=== PATIENT | female | born 1975 | race Caucasian/White ===

== ENCOUNTER 2024-12-21 13:00 | Day surgery (SDC) | payer OTHER, SELFPAY ==
[2024-12-21] VITALS (8 sets, daily range): BP systolic 89–109; BP diastolic 60–77; PULSE 80–92; RESP 16–20; TEMP 36.2–36.8; O2SAT 98–100; BMI 36.8
--- NOTE | ~2024-12-21 | XR_ITS ---
XR stent kub - surgery Ordering provider: Norbert Cruz MD History: . LT CYSTO SPECIAL . Comparison: None. FINDINGS/impression: Fluoroscopy time is 12.1 seconds. Cumulative dose is 5.17mGy. Left retrograde pyelography. Reviewed, dictated and finalized at location A.
--- NOTE | 2024-12-21 08:31 | PC.NURSE ---
Report to the Outpatient Waiting Room, entrance under the green pavilion located off [facility], at time _115pm_ on date _[id number]_. Planned Procedure Time: _315pm_.? Time changes happen often and if your time is changed the preop area will call you the afternoon before. - You and your visitor will be asked to self-screen and do not enter if you have any COVID symptoms. Please call surgeon if you need to reschedule. - A mask is optional within the hospital at this time. Patients may have clear liquids (water, carbonated beverages, clear teas, apple juice) until 3 hours prior to surgery with a maximum of 20 ounces. - No food from midnight until time of surgery and no smoking, or chewing tobacco (or any form of nicotine). No chewing gum, candy or mints. Take only the following medications with a SIP of water on the morning of surgery: __Bupropion, Venlafaxine and if needed Hydrocodone and or Alprazolam DO NOT STOP ANY OF YOUR OTHER PRESCRIPTION MEDICATIONS PRIOR TO SURGERY EXCEPT THE FOLLOWING Hold all vitamins and supplements for 3 days per anesthesiologist. Medications to discontinue per physician Date to take last dose Please no make-up, nail welsh, hairspray, perfume, deodorant, or body powder the day of surgery.? No jewelry (including any body piercings) or valuables the day of surgery, leave them at home.? Please take a shower or bath the night before, or the morning of, surgery with an antibacterial soap.? Wear comfortable, loose fitting clothing.? - Jewelry must be removed prior to entering the operating room.? Rings and piercings that are not removed may be cut off. - The hospital will not accept responsibility for valuables.? - Please leave all valuables, including medications, at home the day of surgery. If you are going home after surgery, a licensed commercial trailer truck driver must drive you home.? - NO public transportation without another adult if you receive anesthesia. - We recommend that an adult stay with you for 24 hours following discharge. - We also recommend that you do not drive, make important decision, drink alcoholic beverages, or take any drugs that were not prescribed by your health care provider for at least 24 hours after your discharge time. Follow any additional instructions given to you from your surgeon. Telephone instructions given to ___Kasey__and asked if any additional questions and then verbalized understanding. Patient advised to call surgeon office or pre surgery nurse liaison [phone] if any additional questions.
--- NOTE | 2024-12-21 09:22 | ECG_ITS ---
Test Date: 2024-12-21 13:25:36 Measurements Intervals [place] Rate: 86 P: 11 MA: 150 QRS: 7 QRSD: 94 T: 22 QT: 399 QTc: 477 Interpretive Statements SINUS RHYTHM No previous ECG available for comparison Electronically Signed On 12-21-2024 16:52:17 CDT by Annie Toscano
--- OUTSIDE RECORDS SUMMARY | 2024-12-21 13:04 | XMS_ITS | Encounter Summary ---
Author Organization [facility] Address [facility] [place] [address] Care Team Providers Care Certified Medication Technician Name Role Phone Francisco Marrero DO Primary Care Provider [phone] Encounter Details Date Type Department Care Team (Late st Contact Info) Description 08/06/2022 Alloptic Message Enc [facility] Health Information Services [address] [place] [id number] [facility] Provider NAME CHANGE Social History Tobacco Use Types Packs/Day Years Used Date Smoking Tobacco: Never Smokeless Tobacco: Never Alcohol Use Standard Drinks/Week Comments Not Currently 0 (1 standard drink = 0.6 oz pur e alcohol) Less than 2 drinks per month AUDIT-C Answer Date Recorded Frequency of Alcohol Consumption Never 11/18/2018 Average Number of Drinks Not on file 019 Frequency of Binge Drinking Not on file 10/21 PHQ-2 Answer Date Recorded PHQ-2 Score - If the patient scores above 3, please move on to questions 3-9 0 05/22/2020 Comments No Sex and Gender Information Value Date Recorded Sex Assigned at Not on file Legal Sex Female 6:18 PM CDT Gender Identity Female 07/08/2022 9:27 AM 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 No / Unsure 08/05/2022 8:33 AM PLASTIC FRAME INSERTER documented as of this encounter Plan of Treatment Upcoming Encounters Date Type Department Care Team (Late st Contact Info) Description 09/26/2025 8:30 AM CDT Appointment [facility] [address] [place] [address] Francisco Marrero DO [address] [place], [place] [address] documented as of this encounter Visit Diagnoses Not on filedocumented in this encounter Additional Health Concerns Assessment Noted Time PHQ-9 Depression Total Score: 3 04/14/20 19 10:06 AM CDT documented as of this encounter Care Teams Certified Medication Technician Relationship Specialty Start Date End Date Francisco Marrero DO [address] [place], [place] [id number] PCP - General FAMILY PRACTICE 06/11/21 documented as of this encounter
--- OUTSIDE RECORDS SUMMARY | 2024-12-21 13:04 | XMS_ITS | Encounter Summary ---
Author Organization [facility] Address [facility] [place] [address] Care Team Providers Care Photovoltaic Installer Name Role Phone Francisco Marrero DO Primary Care Provider [phone] Encounter Details Date Type Department Care Team (Late st Contact Info) Description 12/20/2024 Results Follow-Up [facility] Emergency Room [address] [place] [address] Judith Washburn MD [address] [place] [address] URINE BACTERIA CULTURE Social History Tobacco Use Types Packs/Day Years [...] on file 10/21 PHQ-2 Answer Date Recorded Patient Health Questionnaire-2 Score 0 03/15/2024 Comments No Sex and Gender Information Value Date Recorded Sex Assigned at Not on file Legal Sex Female 6:18 PM CDT Gender Identity Female 07/08/2022 9:27 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 Sexual Orientation Straight 07/08/2022 9: 27 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 documented as of this encounter Plan of Treatment Upcoming Encounters Date Type Department Care Team (Late st Contact Info) Description 09/26/2025 8:30 AM CDT Appointment [facility] [address] [place] [address] Francisco Marrero DO [address] [place] [address] documented as of this encounter Visit Diagnoses Not on filedocumented in this encounter Additional Health Concerns Assessment Noted Time PHQ-9 Depression Total Score: 3 04/14/20 19 10:06 AM CDT documented as of this encounter Care Teams Photovoltaic Installer Relationship Specialty Start Date End Date Francisco Marrero DO [address] [place], [place] [id number] PCP - General FAMILY PRACTICE 06/11/21 documented as of this encounter
--- OUTSIDE RECORDS SUMMARY | 2024-12-21 13:04 | XMS_ITS | Encounter Summary ---
Author Organization [facility] Address [facility] [place] [address] Care Team Providers Care Delivery And Mail Sorter Name Role Phone Maria Esther Motley NP Primary Care Provider [phone] Francisco Marrero DO Primary Care Provider [phone] Reason for Referral * Imaging (Routine) - Closed Specialty Diagnoses / Procedures Referred By Contac t Referred To Contact RADIOLOGY Diagnoses Genetic carrier Procedures MRI BREAST MARY WWO CON Zoila Morales MD [address] [place] [address] [place] [address] Phone: tel: fax: Referral ID Status Reason Start Date Expiration Date Visits Re quested Visits Authorized [id number] Closed 06/24/2021 08/08/2021 1 1 Encounter Details Date Type Department Care Team (Late st Contact Info) Description 04/14/2021 Community Orders [facility] EPICCARE [facility] Zoila Aragon MD [address] [place] [address] [place] [address] Social History Tobacco Use Types Packs/Day Years [...] CDT Gender Identity Female 07/08/2022 9:27 AM 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 FINANCE SPECIALIST Sexual Orientation Straight 07/08/2022 9: 27 AM STUDENT FINANCE SPECIALIST documented as of this encounter Plan of Treatment Upcoming Encounters Date Type Department Care Team (Late st Contact Info) Description 09/26/2025 8:30 AM CDT Appointment [facility] [address] [place] [address] Francisco Marrero DO [address] [place] [address] documented as of this encounter Results * MRI BREAST MARY WWO CON [place] (06/30/2021 1:17 PM STUDENT FINANCE SPECIALIST) Anatomical Region Laterality Modality Breast Bilateral Magnetic Resonan ce 07/02/2021 2:33 PM STUDENT FINANCE SPECIALIST Impressions 07/02/2021 2:42 PM STUDENT FINANCE SPECIALIST IMPRESSION: 1. Negative study. No breast MRI evidence of invasive malignancy within either breast. Recommendation: 1: Screening mammogram bilateral in 12 months. 2. Repeat breast MRI in 18 months. Return for Routine Follow-Up: Yes Assessment: BI-RADS 2 Ordered By: ZOILA ARAGON Interpreted By: Jerod Resendez MD, 07/02/2021 2:33 PM Narrative 07/02/2021 2:42 PM STUDENT FINANCE SPECIALIST Examination: MRI breast bilateral with and without contrast Exam Date: 06/30/2021 12:22 PM Clinical history: Personal high risk of breast cancer, heterogeneous dense glandular tissue on mammography, supplemental screening. Comparison: Mammograms 12/07/2018, 11/17/2017, 10/05/2016 and 04/01/2016. Breast MRI for 08/10/2014 MRI technique: Axial T1 and T2-weighted images were obtained along with sagittal fat-suppressed T2-weighted images. Axial fat-suppressed 3-D T1 gradient echo images were then obtained. Following intravenous injection of 0.1 mmol/kilogram gadolinium contrast, the axial T1 gradient-echo fat-suppressed sequence was repeated 5 times using rapid dynamic technique. Further delayed axial T1 sequence was also obtained. The precontrast axial T1 sequence was then electronically subtracted from the post contrast axial T1 sequences in order to improve background suppression. The study was interpreted with the assistance of a computer aided detection system. Findings: The images demonstrate heterogeneous dense glandular tissue throughout both breasts. No significant cysts are seen in either breast. No significant abnormal enlarged axillary lymph nodes are noted. In the right breast 9:00 position there is an oval enhancing mass which measures up to 14 mm in maximum diameter. This has smooth lobulated margins, high T2 signal intensity and benign enhancement curve. This is unchanged in comparison to previous mammograms and previous breast MRI consistent with benign etiology. At 10:00 posterior right breast there is an additional oval enhancing mass which measures up to 9 mm in maximum diameter also demonstrate a smooth margins, high T2 signal intensity and no interval change from previous mammograms and breast MRI consistent with benign etiology. There is no malignant appearing enhancement identified within either breast. Result [facility] Zoila Aragon MD MRI Final Result documented in this encounter Visit Diagnoses Diagnosis Genetic carrier- Primary Other genetic carrier status Genetic carrier Other genetic carrier status documented in this encounter Additional Health Concerns Assessment Noted Time PHQ-9 Depression Total Score: 3 04/14/20 19 10:06 AM CDT documented as of this encounter Care Teams Delivery And Mail Sorter Relationship Specialty Start Date End Date Maria Esther Motley NP [address] [place] [address] PCP - General Nurse Practitioner Family 04/12/19 Francisco Marrero DO [address] [place] [id number] PCP - General FAMILY PRACTICE 06/11/21 documented as of this encounter
--- OUTSIDE RECORDS SUMMARY | 2024-12-21 13:04 | XMS_ITS | Encounter Summary ---
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 Wish to be (Past 1 Month) No 12/19/2024 10:29 AM SHAKILAT Yomaira Vargas RN Active 2. Non-Specific Active Suicidal Thoughts (Past 1 Month) No 12/19/2024 10:29 AM CDT Yomaira Vargas RN Active 6. Suicidal Behavior (Lifetime) No 12/19/2024 10:29 AM CDT Yomaira Vargas RN Active documented as of this encounter Plan of Treatment Upcoming Encounters Date Type Department Care Team (Late st Contact Info) Description 09/26/2025 8:30 AM CDT Appointment [facility] [address] [place] [address] Francisco Marrero DO [address] [place] [address] documented as of this encounter Results * VITAMIN D, 25 OH (12/18/2024 1:05 PM CDT) VITAMIN D 25 HYDROXY S/P/B 45 30 - 100 NG/ML 12/18/2024 2:26 PM CDT [facility] Comment: INTERPRETATION DEFICIENT <20 INSUFFICIENT 20-29 SUFFICIENT 30-100 12/18/2024 1:05 PM CDT us Brenda [facility] Final Resul t [facility] [address] [place] [address], [place] [phone] * (ABNORMAL) IRON SAT PANEL (IRON,IBC,%SAT) (12/18/2024 1:05 PM CDT) IRON 52 50 - 170 MCG/DL 12/19/2024 12:15 PM CDT [facility] IRON BINDING CAPACITY 358 250 - 450 MCG/DL 12/19/2024 12:15 PM CDT [facility] IRON SATURATION 15(L) 20 - 55 % 12:15 PM CDT [facility] 12/18/2024 1:05 PM CDT Brenda Haq APNP LABORATORY Final Resul t [facility] [address] [place] [address], [place] [phone] * THYROID STIM HORMONE TSH (12/18/2024 1:05 PM CDT) TSH 1.179 0.358 - 3.74 uIU/ML 12/18/2024 2:06 PM CDT [facility] Comment: HIGH DOSES OF BIOTIN MAY INTERFERE WITH THIS TEST RESULT. CORRELATION TO CLINICAL HISTORY AND PRESENTATION RECOMMENDED. 12/18/2024 1:05 PM CDT Brenda L Eun APNP LABORATORY Final Resul t [facility] [address] [place] [address], [place] [phone] * (ABNORMAL) COMPREHENSIVE METABOLIC PANEL (12/18/2024 1:05 PM CDT) GLUCOSE 113(H) 70 - 99 MG/DL 12/18/2024 2:06 PM CDT [facility] BUN 22(H) 7 - 18 MG/DL 12/18/2024 2:06 PM CDT [facility] CREATININE S/P/B 1.00 0.55 - 1.02 MG/DL 12/18/2024 2:06 PM T [facility] SODIUM S/P/B 141 136 - 145 MMOL/L 12/18/2024 2:06 PM T [facility] POTASSIUM S/P/B 3.5 3.5 - 5.1 MMOL/L 12/18/2024 2:06 PM T [facility] CHLORIDE S/P/B 103 100 - 108 MMOL/L 12/18/2024 2:06 PM T [facility] CO2 27.0 21 - 32 MMOL/L 12/18/2024 2:06 PM [facility] CALCIUM S/P/B 9.0 8.5 - 10.1 MG/DL 12/18/2024 2:06 PM T [facility] BILIRUBIN TOTAL S/P/B 0.4 0.2 - 1.2 MG/DL 12/18/2024 2:06 PM T [facility] Comment: THIS ASSAY IS NOT RECOMMENDED FOR PATIENTS UNDERGOING TREATMENT WITH ELTROMBOPAG DUE TO THE POTENTIAL FOR FALSELY ELEVATED RESULTS. TOTAL PROTEIN S/P/B 7.3 6.4 - 8.2 G/DL 12/18/2024 2:06 PM [facility] ALBUMIN S/P/B 3.4 3.4 - 5.0 G/DL 12/18/2024 2:06 PM [facility] AST 16 15 - 37 U/L 12/18/2024 2:06 PM T [facility] ALT 31 14 - 55 U/L 12/18/2024 2:06 PM [facility] ALKALINE PHOSPHATASE S/P/B 129 50 - 136 U/L 12/18/2024 2:06 PM T [facility] ANION GAP 11.0 5 - 15 MMOL/L 12/18/2024 2:06 PM CDT [facility] BUN CREATININE RATIO 22.0 6 - 26 12/18/2024 2:06 PM CDT [facility] A/G RATIO 0.9(L) 1.0 - 2.0 RATIO 12/18/2024 2:06 PM CDT [facility] GFR ESTIMATE 68(L) >90 ML/MIN/1.7 3 M2 12/18/2024 2:06 PM CDT [facility] Comment: NOTE: eGFR is not calculated for patients <18 years of age. This is an estimated GFR calculation using the new CKD EPI creatinine equation without race and so does not require a correction factor for race. This estimated GFR should not be used for calculating drug doses. 12/18/2024 1:05 PM CDT us Brenda COTTERNP LABORATORY Final Resul t [facility] [address] [place] [address], [place] [phone] * CBC W/DIFF AUTOMATED (12/18/2024 1:05 PM CDT) WBC 6.60 4.50 - 11.00 x10'3/uL 12/18/2024 1:26 PM CDT [facility] RBC 4.71 4.20 - 5.40 x10'6/uL 12/18/2024 1:26 PM CDT [facility] HGB 13.3 12.0 - 16.0 G/DL 12/18/2024 1:26 PM CDT [facility] HCT 40.8 38.0 - 48.0 % 12/18/2024 1:26 PM CDT [facility] MCV 86.6 81.0 - 99.0 FL 12/18/2024 1:26 PM CDT [facility] MCH 28.2 27.0 - 31.0 PG 12/18/2024 1:26 PM CDT [facility] MCHC 32.6 32.0 - 36.0 G/DL 12/18/2024 1:26 PM CDT [facility] RDW 13.2 11.5 - 14.5 % 12/18/2024 1:26 PM CDT [facility] PLT 348 130 - 400 x10'3/uL 12/18/2024 1:26 PM CDT [facility] MPV 10.3 9.3 - 12.2 FL 12/18/2024 1:26 PM CDT [facility] CBC COMMENT AUTOMATED RBC MORPHOLOGY AND PLATELET EVALUATION NORMAL 12/18/2024 1:26 PM CDT [facility] NEUTROPHILS % 58.4 % 12/18/2024 1:26 PM CDT [facility] LYMPHOCYTES % 32.3 % 12/18/2024 1:26 PM CDT [facility] MONOCYTES % 5.8 % 12/18/2024 1:26 PM CDT [facility] EOSINOPHILS 2.6 % 12/18/2024 1:26 PM CDT [facility] BASOPHILS 0.6 % 12/18/2024 1:26 PM CDT [facility] IMMATURE GRANS % 0.3 % 12/19/19 1:26 PM CDT [facility] NRBC % 0.0 % 12/18/2024 1:26 PM CDT [facility] ABS. NEUTROPHILS TOTAL 3.86 1.80 - 7.70 x10'3/uL 12/18/2024 1:26 PM CDT [facility] ABS. LYMPHOCYTES 2.13 1.00 - 4.80 x10'3/uL 12/18/2024 1:26 PM CDT [facility] ABS. MONOCYTES 0.38 0.24 - 0.86 x10'3/uL 12/18/2024 1:26 PM CDT [facility] ABS. EOSINOPHILS 0.17 0.04 - 0.36 x10'3/uL 12/18/2024 1:26 PM CDT [facility] ABS. BASOPHILS 0.04 0.01 - 0.08 x10'3/uL 12/18/2024 1:26 PM CDT [facility] ABS. IMMATURE GRANULOCYTES 0.02 0.00 - 0.49 x10'3/uL 12/18/2024 1:26 PM CDT [facility] ABS. NUCLEATED RBC'S 0.00 0.00 - 0.01 x10'3/uL 12/18/2024 1:26 PM CDT [facility] 12/18/2024 1:05 PM CDT us Brenda [facility] Final Resul t [facility] [address] [place] [id number], documented in this encounter Visit Diagnoses Diagnosis Essential (primary) hypertension- Primary Unspecified essential hypertension Major depressive disorder, single episode, unspecified Vitamin D deficiency Unspecified vitamin D deficiency Anemia Anemia, unspecified documented in this encounter Additional Health Concerns Assessment Noted Time PHQ-9 Depression Total Score: 3 04/14/20 19 10:06 AM CDT documented as of this encounter Care Teams Director Of Math Relationship Specialty Start Date End Date Francisco Marrero DO [address] [place] [id number] PCP - General FAMILY PRACTICE 06/11/21 documented as of this encounter
--- OUTSIDE RECORDS SUMMARY | 2024-12-21 13:04 | XMS_ITS | Clinical Summary ---
Author Organization [facility] Address [facility] [place] [address] Care Team Providers Care Director Internal Communications Name Role Phone Kayla Eugene DO Primary Care Provider [phone] Allergies Active Allergy Reactions Criticality Noted Date Comments Chapstick Swelling 01/19/2013 Cyanoacrylate Hives 04/14/2021 Tamsulosin Shortness of Breath,Tachycardia High 06/2024 Latex Hives 12/26/2019 Penicillins Hives 11/18/2018 Tape Rash Medium 07/16/2020 Medications fluticasone propionate 50 MCG/ACT nasal spray 1 spray by Nasal route daily. Active ondansetron 4 MG disintegrating tablet Take 1 tablet (4 mg total) by mouth every 8 (eight) hours as needed. 0 Active cetirizine 10 MG tablet Take 1 tablet (10 mg total) by mouth daily. Active ALPRAZolam 0.5 MG tabletIndications:A nxiety Take 1 tablet (0.5 mg total) by mouth 2 (two) times daily as needed for Sleep or Anxiety. 60 tablet 2 1 Active buPROPion XL (WELLBUTRIN XL) 300 MG 24 hr tablet Take 1 tablet (300 mg total) by mouth daily. Active venlafaxine XR (EFFEXOR-XR) 75 MG 24 hr capsule Take 1 capsule (75 mg total) by mouth daily. 4 Active lisinopril (PRINIVIL) 5 MG tablet Take 1 tablet (5 mg total) by mouth daily. Active hydroCHLOROthiazide (HYDRODIURIL) 25 MG tablet Take 1 tablet (25 mg total) by mouth daily. Active SEMAGLUTIDE-WEIGHT MANAGEMENT SC Inject 0.4 mg into the skin once a week. Active ketorolac (TORADOL) 10 MG tablet Take 1 tablet (10 mg total) by mouth 4 (four) times daily as needed for Pain. Do NOT take aspirin, ibuprofen, naproxen or other nsaids while taking this medication. 20 tablet 5 12/25/19 25 Active ondansetron (ZOFRAN-ODT) 4 MG disintegrating tablet Take 1 tablet (4 mg total) by mouth every 8 (eight) hours as needed. 10 tablet 5 Active HYDROcodone-acetami nophen (NORCO) 5-325 MG tabletIndications:A cute Pain < 3 Day Supply Take 1 tablet by mouth every 6 (six) hours as needed. Indications: Acute Pain < 3 Day Supply 10 tablet 5 Active Active Problems Problem Noted Date Diagnosed Date High blood pressure 10/21/2020 Anxiety 03/28/2016 Encounters Date Type Department Care Team Description 12/20/2024 Results Follow-Up [facility] [address] [place] [id number] Judith Curiel MD URINE BACTERIA CULTURE 12/19/2024 10:24 AM CDT - 12/19/2024 1:49 PM CDT Emergency [facility] [address] [place] [id number] Judith Curiel MD Flank Pain Discharge Disposition: Home or Self Care (Routine Discharge) 12/19/2024 Travel 12/18/2024 12:55 PM CDT - 12/18/2024 11:59 PM CDT Hospital Encounter [facility] [address] [place] [id number] Brenda Haq, APNP Discharge Disposition: Home or Self Care (Routine Discharge) 12/18/2024 Orders Only [facility] [address] [place] [id number] Brenda Haq HAILEY Choi 12/18/2024 Travel from Last 3 Months Immunizations Immunization Administration Dates Next Due Influenza Adult (Generic) 03/21/2019 MODERNA COVID-19 (12+) MRNA, LNP-S, PF, 100 MCG/ 0.5 ML DOSE 08/07/2020,07/08/2020 Tdap (Boostrix) 11/18/2018 Tdap (Generic) 11/18/2018 Family History Medical History Relation Comments Hypertension Brother Cancer Father Diabetes Father Heart Disease Father Hypertension Father Prostate Cancer Maternal Grandfather Cancer Mother Diabetes Mother Heart Disease Mother Hypertension Mother Kidney Disease Mother Thyroid Mother Thyroid cancer Mother Uterine Cancer Mother Relation Status Comments Brother Father Maternal Grandfather Alive Mother Social History Tobacco Use Types Packs/Day Years Used Date Smoking Tobacco: Never Smokeless Tobacco: Never Tobacco Cessation:Counseling Given: No Alcohol Use Standard Drinks/Week Comments Not Currently [...] CDT Gender Identity Female 07/08/2022 9:27 AM LANDMAN Sexual Orientation Straight 07/08/2022 9: 27 AM LANDMAN Last Filed Vital Signs Vital Sign Reading Time Taken Comments Blood Pressure 137/88 12/19/2024 1:30 PM CDT Pulse 88 12/19/2024 1:30 PM CDT Temperature 36.7 C (98 F) 12/19/2024 10:26 AM CDT Respiratory Rate 16 12/19/2024 1:30 PM CDT Oxygen Saturation 93% 12/19/2024 1:30 PM CDT Inhaled Oxygen Concentration - - Weight 103.4 kg (228 lb) 12/19/2024 10:26 AM CDT Height 167.6 cm (5' 6) 12/19/2024 10:26 AM CDT Body Mass Index 36.8 12/19/2024 10:26 AM CDT Plan of Treatment Upcoming Encounters Date Type Department Care Team (Late st Contact Info) Description 09/26/2025 8:30 AM CDT Appointment [facility] [address], [place] [address] Kayla Eugene DO [address] [place] [address] Health Maintenance Due Date Last Done Comments Hepatitis B Vaccines (1 of 3 - 19+ 3-dose series) 1992 Annual Physical 05/21/2021 05/21/2020 Pneumococcal Vaccine: 50+ Years (1 of 1 - PCV) 11/29/2023 Zoster Vaccines (1 of 2) 11/29/2023 COVID-19 Vaccine (3 - 2023- season) 2024 08/07/2020, 07/08/2020 PHQ-2 (Physician [place]) 06/21/2024 03/15/2024 Mammogram Screening 09/19/2026 09/19/2024, 08/11/2023, 08/05/2022, Additional history exists DTaP, Tdap and Td Vaccines (3 - Td or Tdap) 11/18/2028 11/18/2018, 11/18/2018 Colorectal Cancer Screening Colonoscopy (10 Years) 05/24/2030 05/24/2020 Hepatitis C Completed 05/02/2020 Meningococcal B Vaccine Aged Out No l onger eligible based on patient's age to complete this topic Meningococcal Vaccine Aged Out No vernon arvin eligible based on patient's age to complete this topic RSV Immunizations Under 20 Months Aged Out No longer eligible based on patient's age to complete this topic Procedures Procedure Name Priority Date/Time Associated Diagnosis Comments HC URINALYSIS AUTO W/O MICRO STAT 12/19/2024 11:[address] ABD+PEL WO CON STAT 12/19/2024 11: 13 AM CDT URINE BACTERIA CULTURE STAT 10:37 AM CDT LIPASE STAT 12/19/2024 10:37 AM CDT COMPREHENSIVE METABOLIC PANEL STAT 12/19/2024 10:37 AM CDT CBC W/DIFF AUTOMATED STAT 12/19/2024 10:37 AM CDT VITAMIN D, 25 [place] Routine 12/18/2024 1:05 PM CDT Essential (primary) hypertension Major depressive disorder, single episode, unspecified Vitamin D deficiency Anemia IRON SAT PANEL (IRON,IBC,%SAT) Routine 12/18/2024 1:05 PM CDT Essential (primary) hypertension Major depressive disorder, single episode, unspecified Vitamin D deficiency Anemia THYROID STIM HORMONE TSH Routine 12/18/2024 1:05 PM CDT Essential (primary) hypertension Major depressive disorder, single episode, unspecified Vitamin D deficiency Anemia COMPREHENSIVE METABOLIC PANEL Routine 12/18/2024 1:05 PM CDT Essential (primary) hypertension Major depressive disorder, single episode, unspecified Vitamin D deficiency Anemia CBC W/DIFF AUTOMATED Routine 12/18/2024 1:05 PM CDT Essential (primary) hypertension Major depressive disorder, single episode, unspecified Vitamin D deficiency Anemia MG SCREENING W JEREMY MARY DIGI Routine 09/19/2024 8:13 AM CDT Visit for screening mammogram COLONOSCOPY GENERIC (SCAN ORDER) 05/24/2020 HEPATITIS C ANTIBODY Routine 05/02/2020 2:51 PM LANDMAN Need for hepatitis C screening test from Last 3 Months or Most Recently Relevant to Health Maintenance Results * (ABNORMAL) URINALYSIS (12/19/2024 11:36 AM CDT) COLOR (U) YELLOW 12/19/2024 12:00 PM CDT [facility] TRANSPARENCY CLEAR 12/19/2024 12:00 PM CDT [facility] SPECIFIC GRAVITY (U) 1.010 1.002 - 1.030 12/19/2024 12:00 PM [facility] U PH 7.0 4.5 - 8.0 12/19/2024 12:00 PM [facility] LEUKOCYTES (U) 1+(A) NEGATIVE 12/19/2024 12:00 PM [facility] NITRITES NEGATIVE NEGATIVE 12/19/2024 12:00 PM [facility] PROTEIN RANDOM (U) NEGATIVE NEGATIVE 12/19/2024 12:00 PM [facility] GLUCOSE (U) NEGATIVE NEGATIVE 12/19/2024 12:00 PM [facility] KETONES MG/DL (U) NEGATIVE NEGATIVE 12/19/2024 12:00 PM [facility] UROBILINOGEN NORMAL NORMAL EU/DL 12/19/2024 12:00 PM [facility] BILIRUBIN (U) NEGATIVE NEGATIVE 12/19/2024 12:00 PM [facility] BLOOD (U) 3+(A) NEGATIVE 12/19/2024 12:00 PM [facility] WBC/HPF 0-5 /HPF 12/19/2024 12:00 PM [facility] RBC/HPF 5-10 /HPF 12/19/2024 12:00 PM [facility] EPI/HPF 0-5 /HPF 12/19/2024 12:00 PM [facility] BACTERIA (U) 3+ /HPF 12/19/2024 12:00 PM [facility] URINE SPECIMEN OBTAINED BY CLEAN CATCH PROCEDURE / Unknown 12/19/2024 11:36 AM CDT us Judith E Maddison MD URINE ORDERABLES Final Resul t [address] [address], * CT ABD+PEL WO CON (12/19/2024 11:13 AM CDT) Anatomical Region Laterality Modality Abdomen Computed Tomogra phy 12/19/2024 11:2 4 AM CDT Impressions 12/19/2024 11:28 AM CDT IMPRESSION: 1. 6 mm obstructing calculus left vesicoureteral junction. Moderate left hydronephrosis and hydroureter. 2. At least 3 nonobstructing calculi of the left kidney measuring 2 to 3 mm. 3. Postsurgical changes of the stomach. Prior cholecystectomy. 4. No free fluid or free air. Appendix normal. Ordered By: JUDITH CURIEL Interpreted By: Trey Triplett, 12/19/2024 11:24 AM Narrative 12/19/2024 11:28 AM CDT [facility] [address] [place] [id number] EXAMINATION: CT Abdomen and Pelvis without contrast EXAM DATE/TIME: 12/19/2024 11:02 AM REASON FOR EXAM: Left flank pain, left lower quadrant pain. COMPARISON: 02/28/2023 TECHNIQUE: Axial imaging of the abdomen and pelvis was obtained without intravenous contrast. A dose lowering technique was used for this procedure, which may include, but is not limited to, dose reduction technique, automated exposure control, iterative reconstruction, ALARA (As Low As Reasonably Achievable), or Image Gently techniques. FINDINGS: Abdomen: Adrenal glands unremarkable. At least 3 nonobstructing calculi of the left kidney measuring 2 to 3 mm. Moderate left hydronephrosis and hydroureter. 6 mm obstructing calculus left vesicoureteral junction. No suspicious renal lesion within the limitation of a noncontrast study. Postsurgical changes of the stomach. No acute findings of the stomach. Spleen unremarkable. Prior cholecystectomy. Pancreas grossly unremarkable. Hepatic parenchyma are within normal limits with no evidence of intrahepatic biliary dilatation or mass within the limitations of a noncontrast study. No mesenteric lymphadenopathy or evidence of small bowel obstruction. No free fluid or free air. No evidence of retroperitoneal lymphadenopathy. No evidence of an abdominal aortic aneurysm. Scattered fecal material and gas throughout the colon without evidence of mass or dilatation. Appendix not inflamed. Pelvis: Urinary bladder and rectum are unremarkable. On bone windows, no evidence of suspicious skeletal lesion or acute compression fracture deformity. Limited evaluation of the lower thorax demonstrates no acute abnormality. Procedure Note Trey Triplett MD - 12/19/2024 [facility] [address] [place] [address] EXAMINATION: CT Abdomen and Pelvis without contrast EXAM DATE/TIME: 12/19/2024 11:02 AM REASON FOR EXAM: Left flank pain, left lower quadrant pain. COMPARISON: 02/28/2023 TECHNIQUE: Axial imaging of the abdomen and pelvis was obtained withoutintravenous contrast. A dose lowering technique was used for this procedure, which may include,but is not limited to, dose reduction technique, automated exposurecontrol, iterative reconstruction, ALARA (As Low As ReasonablyAchievable), or Image Gently techniques. FINDINGS: Abdomen: Adrenal glands unremarkable. At least 3 nonobstructing calculi of the left kidney measuring 2 to 3mm. Moderate left hydronephrosis and hydroureter. 6 mm obstructing calculusleft vesicoureteral junction. No suspicious renal lesion within the limitation of a noncontrast study. Postsurgical changes of the stomach. No acute findings of the stomach. Spleen unremarkable. Prior cholecystectomy. Pancreas grossly unremarkable. Hepatic parenchyma are within normal limits with no evidence ofintrahepatic biliary dilatation or mass within the limitations of anoncontrast study. No mesenteric lymphadenopathy or evidence of small bowel obstruction. Nofree fluid or free air. No evidence of retroperitoneal lymphadenopathy. No evidence of an abdominal aortic aneurysm. Scattered fecal material and gas throughout the colon without evidence ofmass or dilatation. Appendix not inflamed. Pelvis: Urinary bladder and rectum are unremarkable. On bone windows, no evidence of suspicious skeletal lesion or acutecompression fracture deformity. Limited evaluation of the lower thorax demonstrates no acuteabnormality. IMPRESSION: 1. 6 mm obstructing calculus left vesicoureteral junction. Moderate lefthydronephrosis and hydroureter. 2. At least 3 nonobstructing calculi of the left kidney measuring 2 to 3mm. 3. Postsurgical changes of the stomach. Prior cholecystectomy. 4. No free fluid or free air. Appendix normal. Ordered By: JUDITH CURIEL Interpreted By: Trey Triplett, 12/19/2024 11:24 AM us Judith Curiel MD CT Final Result * (ABNORMAL) COMPREHENSIVE METABOLIC PANEL (12/19/2024 10:37 AM CDT) Only the most recent of2 resultswithin the time period is included. GLUCOSE 111(H) 70 - 99 MG/DL 12/19/2024 11:26 AM CDT [facility] BUN 22(H) 7 - 18 MG/DL 12/19/2024 11:26 AM T [facility] CREATININE S/P/B 1.10(H) 0.55 - 1.02 MG/DL 12/19/2024 11:26 AM T [facility] SODIUM S/P/B 142 136 - 145 MMOL/L 12/19/2024 11:26 AM T [facility] POTASSIUM S/P/B 3.5 3.5 - 5.1 MMOL/L 12/19/2024 11:26 AM T [facility] CHLORIDE S/P/B 105 100 - 108 MMOL/L 12/19/2024 11:26 AM T [facility] CO2 25.4 21 - 32 MMOL/L 12/19/2024 11:26 AM T [facility] CALCIUM S/P/B 9.0 8.5 - 10.1 MG/DL 12/19/2024 11:26 AM [facility] BILIRUBIN TOTAL S/P/B 0.4 0.2 - 1.2 MG/DL 12/19/2024 11:26 AM [facility] Comment: THIS ASSAY IS NOT RECOMMENDED FOR PATIENTS UNDERGOING TREATMENT WITH ELTROMBOPAG DUE TO THE POTENTIAL FOR FALSELY ELEVATED RESULTS. TOTAL PROTEIN S/P/B 7.2 6.4 - 8.2 G/DL 12/19/2024 11:26 AM [facility] ALBUMIN S/P/B 3.5 3.4 - 5.0 G/DL 12/19/2024 11:26 AM [facility] AST 15 15 - 37 U/L 12/19/2024 11:26 AM [facility] ALT 29 14 - 55 U/L 12/19/2024 11:26 AM [facility] ALKALINE PHOSPHATASE S/P/B 121 50 - 136 U/L 12/19/2024 11:26 AM [facility] ANION GAP 11.6 5 - 15 MMOL/L 12/19/2024 11:26 AM [facility] BUN CREATININE RATIO 20.0 6 - 26 12/19/2024 11:26 AM [facility] A/G RATIO 0.9(L) 1.0 - 2.0 RATIO 12/19/2024 11:26 AM [facility] GFR ESTIMATE 61(L) >90 ML/MIN/1.7 3 M2 12/19/2024 11:26 AM [facility] Comment: NOTE: eGFR is not calculated for patients <18 years of age. This is an estimated GFR calculation using the new CKD EPI creatinine equation without race and so does not require a correction factor for race. This estimated GFR should not be used for calculating drug doses. 12/19/2024 10:3 7 AM CDT us Judith Curiel MD LABORATORY Final Result [facility] [address] [place] [address], * CBC W/DIFF AUTOMATED (12/19/2024 10:37 AM CDT) Only the most recent of2 resultswithin the time period is included. WBC 6.69 4.50 - 11.00 x10'3/uL 12/19/2024 11:00 AM CDT [facility] RBC 4.72 4.20 - 5.40 x10'6/uL 12/19/2024 11:00 AM CDT [facility] HGB 13.2 12.0 - 16.0 G/DL 12/19/2024 11:00 AM CDT [facility] HCT 40.8 38.0 - 48.0 % 12/19/2024 11:00 AM CDT [facility] MCV 86.4 81.0 - 99.0 FL 12/19/2024 11:00 AM CDT [facility] MCH 28.0 27.0 - 31.0 PG 12/19/2024 11:00 AM CDT [facility] MCHC 32.4 32.0 - 36.0 G/DL 12/19/2024 11:00 AM CDT [facility] RDW 13.2 11.5 - 14.5 % 12/19/2024 11:00 AM CDT [facility] PLT 334 130 - 400 x10'3/uL 12/19/2024 11:00 AM CDT [facility] MPV 10.3 9.3 - 12.2 FL 12/19/2024 11:00 AM CDT [facility] CBC COMMENT AUTOMATED RBC MORPHOLOGY AND PLATELET EVALUATION NORMAL 12/19/2024 11:00 AM T [facility] NEUTROPHILS % 57.4 % 12/19/2024 11:00 AM T [facility] LYMPHOCYTES % 32.1 % 12/19/2024 11:00 AM T [facility] MONOCYTES % 7.6 % 12/19/2024 11:00 AM T [facility] EOSINOPHILS 2.2 % 12/19/2024 11:00 AM T [facility] BASOPHILS 0.6 % 12/19/2024 11:00 AM T [facility] IMMATURE GRANS % 0.1 % 12/20/19 11:00 AM [facility] NRBC % 0.0 % 12/19/2024 11:00 AM T [facility] ABS. NEUTROPHILS TOTAL 3.83 1.80 - 7.70 x10'3/uL 12/19/2024 11:00 AM [facility] ABS. LYMPHOCYTES 2.15 1.00 - 4.80 x10'3/uL 12/19/2024 11:00 AM [facility] ABS. MONOCYTES 0.51 0.24 - 0.86 x10'3/uL 12/19/2024 11:00 AM T [facility] ABS. EOSINOPHILS 0.15 0.04 - 0.36 x10'3/uL 12/19/2024 11:00 AM T [facility] ABS. BASOPHILS 0.04 0.01 - 0.08 x10'3/uL 12/19/2024 11:00 AM [facility] ABS. IMMATURE GRANULOCYTES 0.01 0.00 - 0.49 x10'3/uL 12/19/2024 11:00 AM T [facility] ABS. NUCLEATED RBC'S 0.00 0.00 - 0.01 x10'3/uL 12/19/2024 11:00 AM CDT [facility] 12/19/2024 10:3 7 AM CDT us Judith Curiel MD LABORATORY Final Result Performing Organization Address City/[facility]/ZIP Co de Phone Number [facility] [address] [place] [address], [place] [phone] * LIPASE (12/19/2024 10:37 AM CDT) LIPASE 23 16 - 77 UNITS/L 12/19/2024 11:26 AM CDT [facility] 12/19/2024 10:3 7 AM CDT us Judith Curiel MD LABORATORY Final Result Performing Organization Address [facility] Co de Phone Number [facility] [address] [place] [address], [place] [phone] * (ABNORMAL) IRON SAT PANEL (IRON,IBC,%SAT) (12/18/2024 1:05 PM CDT) IRON 52 50 - 170 MCG/DL 12/19/2024 12:15 PM CDT [facility] IRON BINDING CAPACITY 358 250 - 450 MCG/DL 12/19/2024 12:15 PM CDT [facility] IRON SATURATION 15(L) 20 - 55 % 12:15 PM CDT [facility] 12/18/2024 1:0 5 PM CDT Brenda HART LABORATORY Final Resul t Performing Organization Address City/[facility]/ZIP Co de Phone Number [facility] [address] [place] [address], [place] [phone] * THYROID STIM HORMONE TSH (12/18/2024 1:05 PM CDT) TSH 1.179 0.358 - 3.74 uIU/ML 12/18/2024 2:06 PM CDT [facility] Comment: HIGH DOSES OF BIOTIN MAY INTERFERE WITH THIS TEST RESULT. CORRELATION TO CLINICAL HISTORY AND PRESENTATION RECOMMENDED. 12/18/2024 1:05 PM CDT Brenda HART LABORATORY Final Resul t Performing Organization Address City/[facility]/ZIP Co de Phone Number [facility] [address] [place] [address], [place] [phone] * VITAMIN D, 25 [place] (12/18/2024 1:05 PM CDT) VITAMIN D 25 HYDROXY S/P/B 45 30 - 100 NG/ML 12/18/2024 2:26 PM CDT [facility] Comment: INTERPRETATION DEFICIENT <20 INSUFFICIENT 20-29 SUFFICIENT 30-100 12/18/2024 1:05 PM CDT Brenda HART LABORATORY Final Resul t Performing Organization Address City/[facility]/ZIP Co de Phone Number [facility] [address] [place] [address], [place] [phone] * MG SCREENING W JEREMY MARY DIGI (09/19/2024 8:13 AM CDT) Anatomical Region Laterality Modality Breast Bilateral Mammography 09/19/2024 12:3 0 PM CDT Impressions 09/19/2024 12:33 PM CDT IMPRESSION: No suspicious mammographic findings. Recommendation: 1. Routine Screening, Bilateral Assessment: ACR BI-RADS 2 - BENIGN FINDING(S) Ordered By: KAYLA EUGENE Interpreted By: Herbert Orellana MD, 09/19/2024 12:30 PM Narrative 09/19/2024 12:33 PM CDT [facility] [address] [id number] Examination: Screening bilateral mammogram Exam Date: 09/19/2024 8:13 AM Clinical history: Screening Comparison: Prior mammogram performed July 2022, July 2023. Patient had also previous breast ultrasound on the right side in 2021 and had MRI breasts. Technique: Digital screening mammography of both breasts was performed. Breast tomosynthesis acquisitions were obtained and reviewed. This study was read with the assistance of a computer-aided detection system. Tissue density: There are scattered areas of fibroglandular density. Findings: No suspicious masses, malignant appearing calcifications, skin thickening or other abnormalities are present. Benign findings with computer-assisted software. Stable nodular patches including in the right outer upper breast also unchanged compared to previous MRI from 2021.. Small nodular patches in the left posterior upper breast likely lymph nodes several millimeters. No significant change from the prior exam. us Kayla Eugene DO MAMMO Final Result * COLONOSCOPY GENERIC (05/24/2020) 05/24/2020 Narrative 05/24/2020 Ordered by an unspecified provider. us Documents Scanned SCANNING Final Result * HEPATITIS C ANTIBODY (05/02/2020 2:51 PM LANDMAN) HEPATITIS C AB NON-REACTI VE NON-REACTI VE 05/02/2020 8:33 PM LANDMAN [facility] 05/02/2020 2:51 PM LANDMAN us Maria Esther Motley NP LABORATORY Final Result [facility] [address] [place] [address], from Last 3 Months or Most Recently Relevant to Health Maintenance Insurance [employer] Care Teams Director Internal Communications Relationship Specialty Start Date End Date Kayla Eugene DO [address] [place] [address] PCP - General FAMILY PRACTICE 06/11/21
[2024-12-21 13:59] LABS: Anion Gap 9 mmol/L (4-12); Blood Urea Nitrogen 27 mg/dL (7-17); Calcium 8.6 mg/dL (8.4-10.2); Carbon Dioxide 22 mmol/L (22-30); Chloride 104 mmol/L (98-107); Estimated CRCL calculation 59 ml/min; Estimated Glomerular Filt Rate 46; Glucose 91 mg/dL (65-110); Potassium 3.4 mmol/L (3.4-5.0); Sodium 135 mmol/L (137-145)
--- NOTE | 2024-12-21 14:07 | P.PNAN_ITS ---
Anes - Initial Pre Proc Eval Procedure: Operation Date: 12/21/24 15:15 Proposed Procedures p Cystoscopy, Left Ureteroscopy, Possible Left Retrograde Pyelogram, Possible Left Stone Extraction, Possible Left Stent Placement, Possible Holmium Laser - Norbert Cruz MD Date/Time: 12/21/24 14:07 Surgeon: Norbert Cruz MD Pre Op Diagnosis: left kidney stone Patient Data Age: 49 Gender: F Height: 1.68 m Weight: 105.8 kg Last Vital Signs Temp 36.2 C L 12/21/24 13:29 Pulse 92 12/21/24 13:29 Resp 18 12/21/24 13:29 BP 109/68 12/21/24 13:29 Pulse Ox 98 12/21/24 13:29 O2 Del Method Room Air 12/21/24 13:29 Allergies Allergy/AdvReac Type Severity Reaction Status Date / Time adhesive tape Allergy Intermediate Rash Verified 12/21/24 08:14 latex Allergy Intermediate Itching Verified 12/21/24 08:14 Home Medications ?Medication ?Instructions ?Recorded ?Confirmed ?Type alprazolam 0.5 mg tablet 0.5 mg PO BID PRN anxiety 12/21/24 12/21/24 History bupropion HCl 300 mg 24 hr tablet, 300 mg PO DAILY 12/21/24 12/21/24 History extended release cetirizine 10 mg capsule (All Day 10 mg PO DAILY 12/21/24 12/21/24 History Allergy (cetirizine)) hydrochlorothiazide 12.5 mg tablet 12.5 mg PO DAILY 12/21/24 12/21/24 History hydrocodone 5 mg-acetaminophen 325 1 tablet PO Q6H PRN pain 12/21/24 12/21/24 History mg tablet ketorolac 10 mg tablet 10 mg PO Q6H PRN pain 12/21/24 12/21/24 History lisinopril 5 mg tablet 5 mg PO DAILY 12/21/24 12/21/24 History ondansetron 4 mg disintegrating 4 mg PO DAILY PRN nausea and 12/21/24 12/21/24 History tablet vomiting phentermine 37.5 mg tablet 37.5 mg PO DAILY 12/21/24 12/21/24 History semaglutide 0.25 mg/0.05 mL 205 mg subcut WEEKLY 12/21/24 12/21/24 History subcutaneous syringe topiramate 25 mg tablet 50 mg PO DAILY 12/21/24 12/21/24 History venlafaxine 150 mg 150 mg PO DAILY 12/21/24 12/21/24 History capsule,extended release 24 hr Laboratory Tests 12/21/24 13:22 Sodium 135 L mmol/L (137-145) Potassium 3.4 mmol/L (3.4-5.0) Chloride 104 mmol/L (98-107) Carbon Dioxide 22 mmol/L (22-30) Anion Gap 9 mmol/L (4-12) BUN 27 H mg/dL (7-17) Creatinine 1.24 H mg/dL (0.7-1.0) Estim Creat Clear Calc 59 ml/min Estimated GFR 46 L (59 - ) Glucose 91 mg/dL (65-110) Calcium 8.6 mg/dL (8.4-10.2) Patient hx anesthesia problems: none Family hx anesthesia problems: none Results Review: All pre-operative results and documents have been reviewed as part of the pre- operative evaluation. [facility] Social History Social History Smoking status: Never smoker Living arrangements: with family Spiritual care concerns: No Anes - Eval Final PreProcedure Day of Procedure 12/21/24 14:07 Patient weight: obese Heart: regular rate and rhythm Lungs: clear to auscultation Airway: Mallampati scale class II Neurological: alert and oriented Last oral intake: >/= 8 hours ASA classification: III Emergent: no Anesthetic plan: proceed Anesthesia type and monitoring: general LMA and standard monitoring Results Review: All pre-operative results and documents have been reviewed as part of the pre- operative evaluation. Informed Consent: The patient's anesthetic plan and its attendant risks and benefits were discussed with the patient/family/POA. Questions were solicited and answers provided to the satisfaction of the patient/family/POA.
--- NOTE | 2024-12-21 14:21 | WPDHPUPDATE1 ---
History and Physical Update Update Date/Time: 12/21/24 14:21 History and Physical has been reviewed, including an updated exam of the patient. There are NO changes in the patient's condition. Risks, benefits, and alternatives have been discussed and questions answered. Patient agrees to proceed with procedure.
--- NOTE | 2024-12-21 14:39 | S_PTH ---
PATIENT: Adrianna Em LOC: [facility] U#:[id number] AGE/SX: 49/F ROOM: RE12/21/[address]: Norbert Cruz MD : 1975 BED: DIS: 12/21/2024 SPEC #: [id number] RECD: 12/25/24 07:45 STATUS: DREW REQ #: [id number] SKINNY: 12/21/24 14:[address]: Norbert Cruz DEPT: [facility] Surgical RECD BY: Julia Bailey Tissues: A - Stone Procedures: Gross Exam Level 1 Crystalline Analysis
[2024-12-21] MEDS: LACTATED RINGERS 1,000 ML 30 ML IV CONT ×2 (14:48→15:11)
--- NOTE | 2024-12-21 14:51 | W.PM.PROC2 ---
Procedure Note - Detailed Date of Procedure 12/21/24 Pre-op Diagnosis Left distal ureteral stone Post-op Diagnosis Same Procedure Performed Cystoscopy, left ureteroscopy with stone extraction Surgeon Norbert Cruz MD Anesthesia General Description of Procedure The patient was brought to the operative suite where she is prepped and draped in a routine sterile fashion while in the dorsal lithotomy position after the uneventful induction of a general LMA anesthetic. A 19F rigid cystoscope was placed in the bladder. The patient had no evidence of urethral stricture or bladder neck contracture. The bladder mucosa was endoscopically normal without hyperemia or neoplasm. There was a single, orthotopic ureteral orifice bilaterally. A 0.035 glidewire was advanced into the left renal pelvis under fluoroscopy. The distal ureter was dilated with an 8F/10F ureteral dilator. Ureteroscopy was undertaken with a short, tapered, semi-rigid ureteroscope and the stone was extracted with ease using a 1.9F Escape disposable stone basket. Due to the ease of this manipulation I opted not to place a ureteral stent. The patient's bladder was emptied and was taken to the recovery room having tolerated this procedure well. Drains No Packing Yes Pathology None sent Complications No immediate complications Disposition PACU
== END 2024-12-21 16:24 | disposition home or self-care (01) ==
PROVIDERS: Anesthesiology; Visit Provider Urology
PROC: (CPT 52352; principal; 2024-12-21 15:15)
DX: N20.1 Calculus of ureter (principal); E66.9 Obesity, unspecified; Z68.37 Body mass index [BMI] 37.0-37.9, adult
CPT/HCPCS: 52352; 36415; 80048; 82365; 88300; 93005; J0690; J1100; J2003; J2250; J2405; J2704; J7120